=== PATIENT | male | born 1995 | race Caucasian/White ===

== ENCOUNTER 2018-04-26 19:09 | Emergency (ER) | payer SELFPAY ==
[~2018-04-26] VITALS: Ht 182.8 cm; Wt 81.6 kg
[~2018-04-26 19:09] MED LIST: AMOXICILLIN500 M2 PO; AMOXIL500 MG PO; ATIVAN0.5 MG PO; BUSPAR5 MG PO; CIPRODEX 0.3%-7.5 ML OT; MOTRIN400 MG PO; MOTRIN600 MG PO; MOTRIN800 MG PO; TYLENOL W/CODEI1 TA2 PO
[2018-04-26] MEDS ORDERED: CYCLOBENZAPRINE10 MG PO (20:06)
[2018-04-26] MEDS ORDERED: IBU800 MG PO (20:06)
== END 2018-04-26 20:28 | disposition home or self-care (01) ==
LOC: ED 19:09
DX: R07.81 Pleurodynia (principal); J00 Acute nasopharyngitis [common cold]; R05 Cough; X58.XXXA Exposure to other specified factors, initial encounter; Y93.89 Activity, other specified; Y92.89 Other specified places as the place of occurrence of the external cause; Y99.8 Other external cause status

== ENCOUNTER 2019-09-18 20:35 | Emergency (ER) | payer SELFPAY ==
[~2019-09-18] VITALS: Ht 182.8 cm; Wt 81.6 kg
[~2019-09-18 20:35] MED LIST changes: +CYCLOBENZAPRINE10 MG PO; +IBU800 MG PO
== END 2019-09-18 22:08 | disposition home or self-care (01) ==
LOC: ED 20:35
DX: F11.23 Opioid dependence with withdrawal (principal); F19.20 Other psychoactive substance dependence, uncomplicated

== ENCOUNTER 2019-10-05 23:11 | Emergency (ER) | payer SELFPAY ==
[~2019-10-05] VITALS: Ht 182.8 cm; Wt 78.5 kg
[2019-10-06 00:19] LABS: BASO % 0.2 % (0.0-1.0); LYMPH # 1.1 10*3/uL (1.3-4.4); LYMPH % 8.6 % (27.0-41.0); MEAN CELL VOLUME 97.9 fl (80.0-94.0); MEAN CORPUSCULAR HGB 30.8 pg (27.0-31.0); MEAN CORPUSCULAR HGB CONC 31.5 g/dl (33.0-37.0); MEAN PLATELET VOLUME 9.8 fl (9.6-12.3); MONO # 0.8 10*3/uL (0.1-1.0); MONO % 6.4 % (3.0-9.0); NEUT # 10.7 10*3/uL (2.3-7.9); NEUT % 84.3 % (47.0-73.0); PLATELET COUNT AUTOMATED 254 10*3/uL (130-400); RED BLOOD COUNT 4.19 10*6/uL (4.50-5.90); RED CELL DISTRI WIDTH 12.6 % (0-14.5); WHITE BLOOD COUNT 12.7 10*3/uL (4.8-10.8)
[2019-10-06 00:32] LABS: BUN 10 mg/dl (7-24); CHLORIDE 110 mmol/L (98-107); CREATININE 0.91 mg/dL (0.70-1.30); SODIUM 142 mmol/L (136-145)
[2019-10-06 00:33] LABS: TROPONIN I < 0.015 ng/ml (<0.045)
== END 2019-10-06 00:55 | disposition home or self-care (01) ==
LOC: ED 23:11
PROVIDERS: Emergency Medicine Emergency Medical Services
DX: T40.1X1A Poisoning by heroin, accidental (unintentional), initial encounter (principal); R40.20 Unspecified coma; F17.200 Nicotine dependence, unspecified, uncomplicated; Y92.89 Other specified places as the place of occurrence of the external cause

== ENCOUNTER 2019-11-27 13:01 | Emergency (ER) | payer SELFPAY ==
[2019-11-27 13:27] LABS: BASO # 0.1 10*3/uL (0.0-0.1); BASO % 0.3 % (0.0-1.0); EOS % 0.1 % (1.0-4.0); HEMATOCRIT 46.7 % (42.0-52.0); LYMPH # 2.1 10*3/uL (1.3-4.4); LYMPH % 12.2 % (27.0-41.0); MEAN CELL VOLUME 96.5 fl (80.0-94.0); MEAN CORPUSCULAR HGB 30.8 pg (27.0-31.0); MEAN CORPUSCULAR HGB CONC 31.9 g/dl (33.0-37.0); MEAN PLATELET VOLUME 9.2 fl (9.6-12.3); MONO # 1.3 10*3/uL (0.1-1.0); MONO % 7.9 % (3.0-9.0); NEUT # 13.3 10*3/uL (2.3-7.9); NEUT % 79.1 % (47.0-73.0); PLATELET COUNT AUTOMATED 390 10*3/uL (130-400); RED BLOOD COUNT 4.84 10*6/uL (4.50-5.90); RED CELL DISTRI WIDTH 13.5 % (0-14.5); WHITE BLOOD COUNT 16.8 10*3/uL (4.8-10.8)
[2019-11-27 13:40] LABS: INTERNATIONAL NORM RATIO 1.2 (2.0-3.5)
[2019-11-27 13:42] LABS: ACETAMINOPHEN (TYLENOL) < 5.0 ug/ml (10-30); ALBUMIN 4.3 gm/dl (3.1-4.5); ALKALINE PHOSPHATASE 109 U/L (45-117); BUN 12 mg/dl (7-24); CHLORIDE 103 mmol/L (98-107); CREATININE 1.18 mg/dL (0.70-1.30); ETHYL ALCOHOL < 3.0 mg/dl (<3); POTASSIUM 3.6 mmol/L (3.5-5.1); SGOT/AST 36 IU/L (3-35); SGPT/ALT 39 U/L (12-78); SODIUM 134 mmol/L (136-145)
[2019-11-27 16:02] LABS: URINE AMPHETAMINES > 1000 (1000ng/ml); URINE BARBITURATES < 200 (200ng/ml); URINE BENZODIAZEPINES < 200 (200ng/ml); URINE CANNABINOIDS (THC) > 50 (50ng/ml); URINE COCAINE < 300 (300ng/ml); URINE METHADONE < 300 (300ng/ml); URINE OPIATES > 300 (300ng/ml)
[2019-11-27 16:04] LABS: URINE PHENCYCLIDINE < 25 (25ng/ml)
[2019-11-27 16:16] LABS: BILIRUBIN Negative; BLOOD Negative (Negative); CLARITY Cloudy (Clear); COLOR Yellow (Yellow); GLUCOSE Negative; KETONE 2+; LEUKO ESTERASE Negative (Negative); NITRITE Negative (Negative); PH 5.5 (4.5-8.0); SPECIFIC GRAVITY 1.025 (1.001-1.030)
[2019-11-27 16:17] LABS: BACTERIA 1+; HYALINE CAST 21-30; MUCOUS 2+
== END 2019-11-27 15:32 | disposition left against medical advice (07) ==
LOC: ED 13:01
PROVIDERS: Emergency Medicine
DX: F19.10 Other psychoactive substance abuse, uncomplicated (principal); R45.1 Restlessness and agitation; R00.0 Tachycardia, unspecified; R40.20 Unspecified coma; R79.1 Abnormal coagulation profile

== ENCOUNTER 2019-12-18 18:57 | Emergency (ER) | payer SELFPAY ==
[~2019-12-18] VITALS: Ht 182.8 cm; Wt 79.4 kg
[2019-12-18 19:51] LABS: BASO % 0.3 % (0.0-1.0); EOS % 0.4 % (1.0-4.0); HEMATOCRIT 42.8 % (42.0-52.0); LYMPH # 1.5 10*3/uL (1.3-4.4); LYMPH % 14.9 % (27.0-41.0); MEAN CELL VOLUME 96.6 fl (80.0-94.0); MEAN CORPUSCULAR HGB 30.5 pg (27.0-31.0); MEAN CORPUSCULAR HGB CONC 31.5 g/dl (33.0-37.0); MEAN PLATELET VOLUME 9.5 fl (9.6-12.3); MONO # 0.7 10*3/uL (0.1-1.0); MONO % 6.7 % (3.0-9.0); NEUT % 77.3 % (47.0-73.0); PLATELET COUNT AUTOMATED 288 10*3/uL (130-400); RED BLOOD COUNT 4.43 10*6/uL (4.50-5.90); RED CELL DISTRI WIDTH 13.2 % (0-14.5); WHITE BLOOD COUNT 10.4 10*3/uL (4.8-10.8)
[2019-12-18 20:11] LABS: ALBUMIN 4.3 gm/dl (3.1-4.5); ALKALINE PHOSPHATASE 94 U/L (45-117); BUN 19 mg/dl (7-24); CHLORIDE 106 mmol/L (98-107); CREATININE 1.01 mg/dL (0.70-1.30); SGOT/AST 11 IU/L (3-35); SGPT/ALT 16 U/L (12-78); SODIUM 140 mmol/L (136-145); TOTAL PROTEIN 8.4 gm/dL (6.4-8.2)
[2019-12-18 20:14] LABS: TROPONIN I < 0.015 ng/ml (<0.045)
== END 2019-12-18 21:30 | disposition left against medical advice (07) ==
LOC: ED 18:57
PROVIDERS: Emergency Medicine
DX: T40.1X1A Poisoning by heroin, accidental (unintentional), initial encounter (principal); Y92.89 Other specified places as the place of occurrence of the external cause

== ENCOUNTER 2023-04-21 12:45 | Emergency (ER) | payer BC ==
[~2023-04-21] VITALS: Ht 182.8 cm; Wt 109.3 kg
[2023-04-21] MEDS ORDERED: COZAAR50 M1 PO (13:17)
== END 2023-04-21 15:17 | disposition home or self-care (01) ==
LOC: ED 12:45
DX: S90.31XA Contusion of right foot, initial encounter (principal); I10 Essential (primary) hypertension; W10.8XXA Fall (on) (from) other stairs and steps, initial encounter; Y93.89 Activity, other specified; Y92.89 Other specified places as the place of occurrence of the external cause; Y99.8 Other external cause status